=== PATIENT | female | born 1980 | race Caucasian/White ===

== ENCOUNTER 2024-03-19 11:05 | Emergency (ER) | payer BC, SELFPAY ==
[2024-03-19 11:17] VITALS: BP 146/67; PULSE 62; RESP 20; TEMP 36.6; O2SAT 99
--- NOTE | 2024-03-19 11:33 | ED_ITS ---
HPI - URI/Sore Throat General Chief Complaint: Upper Respiratory Infection Stated Complaint: Sinus/Sore Throat Time Seen by Provider: 03/19/24 11:45 Source: patient, RN notes reviewed and old records reviewed Mode of arrival: ambulatory Limitations: no limitations History of Present Illness HPI Narrative: Patient presents with complaints of sore throat and some postnasal drainage for about 1 week. She denies any fever, chills, sweats. She has been taking [id number] medications with moderate relief. Says that she has been taking some decongestant, knows that this is detrimental to her blood pressure. Has not been taking any antihistamines. Related Data Home Medications Medication Instructions Recorded Confirmed atorvastatin 10 mg tablet 10 mg PO DAILY 02/02/24 03/19/24 nifedipine 30 mg tablet,extended 30 mg PO DAILY 02/02/24 03/19/24 release Allergies Allergy/AdvReac Type Severity Reaction Status Date / Time No Known Allergies Allergy Verified 03/19/24 11:22 Review of Systems Review of Systems: All systems reviewed & are unremarkable except as noted in HPI and below Constitutional: Constitutional: Reports no additional constitutional complaints ENT: Reports system reviewed and no additional complaints, except as documented, Reports as per HPI, Reports post nasal drip and Reports sore throat Cardiovascular: Cardiovascular: Reports no additional cardiovascular complaints Respiratory: Respiratory: Reports no additional respiratory complaints Gastrointestinal: Gastrointestinal: Reports no additional gastrointestinal complaints [facility] Past Medical History Medical History delivery delivered High cholesterol Hypertension Surgical History Surgical History H/O gynecological procedure D&C ~2013 History of appendectomy Family History Family History Father Pancreatic cancer Mother Kidney carcinoma Social History Social History Smoking status: Never smoker Alcohol intake: current Alcohol use details: rarely Substance use: never Substance use type: does not use Do You Feel Safe in your Home?: Yes Lack of Transportation: No Lack of Food: Never True Current Housing: I Have Housing Concerned About Future Housing: No Difficulty Paying Gas/Electric Bills: No Difficulty Paying for Meds: No Currently Unemployed: No Education: High School Diploma/GED Difficulty w/ Childcare or Family Care: No Living arrangements: with family Occupation/Education: occupation Additional occupation/education comments: [employer] Gender identity (if verbalized by the patient): Female Sexual Orientation (if Verbalized by the Patient): Straight or Heterosexual Comments At the time of my signature, I reviewed and agree with the nursing past medic al, surgical, social, and family history. There is no relevant family history pertinent to the patient complaint. Exam Const: General: cooperative, no acute distress, alert and awake Orientation/consciousness: oriented to person, oriented to place and oriented to time HENMT: Head: normal to inspection Ears: TM's normal bilaterally Mouth: Yes moist mucous membranes Throat: posterior oropharynx abnormal erythema Resp: Effort & Inspection: normal respiratory effort and able to speak in complete sentences Auscultation: clear to auscultation bilaterally, no crackles, no rales, no rhonchi and no wheezes Cardio: Palpation: normal PMI Rate: regular rate Rhythm: regular rhythm Heart sounds: S1 normal heart sound present and S2 normal heart sound present Neuro: General: oriented to person, oriented to place and oriented to time Cranial nerves: Yes CN's II-XII intact bilaterally Psych: Appearance: grossly normal Thought process: Normal thought process present Insight: Good insight present (Psych) Judgement: Good judgement present (Psych) Course Course Level of Care: Express Care Visit Vital Signs Vital signs: Vital Signs Temperature 98 F 03/19/24 11:17 Pulse Rate 62 03/19/24 11:17 Respiratory Rate 20 03/19/24 11:17 Blood Pressure 146/67 H 03/19/24 11:17 Pulse Oximetry 99 03/19/24 11:17 Oxygen Delivery Room Air 03/19/24 11:17 Temperature 98 F 03/19/24 11:17 Pulse Rate 62 03/19/24 11:17 Respiratory Rate 20 03/19/24 11:17 Blood Pressure 146/67 H 03/19/24 11:17 Pulse Oximetry 99 03/19/24 11:17 Oxygen Delivery Room Air 03/19/24 11:17 Reviewed MDM - URI/Sore Throat MDM Narrative Medical decision making narrative: Negative strep, culture pending. Reassuring physical exam. Symptoms likely secondary to viral infection. Treat symptomatically. Follow with primary care provider. Emergency department for new or worse symptoms. Discharge instructions reviewed with patient, as well as provided in writing per nursing staff. The instructions also include specific and strict return/GO TO THE ER as well as f/u information. All questions have been answered, and the patient deny any further questions with discharge and discharge plan. Some parts of this dictation were generated by voice recognition software and may contain typographical and/or grammatical inaccuracies. Differential Diagnosis Differential diagnosis: Likely upper respiratory infection, sinusitis, viral infection and pharyngitis Medical Records Attestation: I reviewed the patient's medical records. Lab Data Attestation: I reviewed the patient's lab results. Discharge Plan Discharge Clinical Impression: Viral infection Patient Disposition: Home, Self-Care Condition: Stable Instructions: Antibiotic Form Additional Instructions: Take medications as prescribed, follow with primary care provider. Emergency department for new or worse symptoms Patient Language: Icelandic Prescriptions: No Action atorvastatin 10 mg tablet 10 mg PO DAILY nifedipine 30 mg tablet extended release 30 mg PO DAILY Follow-up/Referrals: Benjamin,MD Gareth [Primary Care Provider] - 1 Week Time of Disposition: 12:02
[2024-03-19 11:43] LABS: EDSTREPNEGPOS1 Negative (Negative)
== END 2024-03-19 12:15 | disposition home or self-care (01) ==
PROVIDERS: Emergency Provider Nurse Practitioner Family; PCP Internal Medicine
DX: B34.9 Viral infection, unspecified (principal); E78.00 Pure hypercholesterolemia, unspecified; I10 Essential (primary) hypertension
CPT/HCPCS: 87081; 87880; 99213; G0463

== ENCOUNTER 2024-06-05 07:50 | Outpatient (CLI) | payer BC, SELFPAY ==
--- NOTE | 2024-06-05 08:02 | ECG_ITS ---
Test Date: 2024-06-05 08:24:06 Measurements Intervals [place] Rate: 69 P: 47 AR: 159 QRS: 42 QRSD: 104 T: 29 QT: 393 QTc: 422 Interpretive Statements SINUS RHYTHM LOW QRS VOLTAGE IN PRECORDIAL LEADS [QRS DEFLECTION < 1.0 mV IN CHEST LEADS] Poor R wave progression No previous ECG available for comparison Electronically Signed On 06-05-2024 21:52:00 RAT CULTURIST by Chris Mckenna M.D.
== END 2024-06-05 07:51 | disposition home or self-care (01) ==
LOC: ANHSURGERY 07:57
PROVIDERS: PCP Internal Medicine; Visit Provider Obstetrics & Gynecology
DX: Z01.818 Encounter for other preprocedural examination (principal); I10 Essential (primary) hypertension; N93.9 Abnormal uterine and vaginal bleeding, unspecified
CPT/HCPCS: 36415; 86850; 86900; 86901; 93005

== ENCOUNTER 2024-06-12 00:36 | Day surgery (SDC) | payer BC, SELFPAY ==
--- NOTE | 2024-05-31 16:51 | SUR.PREOP ---
Report to the Outpatient Waiting Room, entrance under the green pavilion located off [facility], at time 0600 on date 06/12/24. Planned Procedure Time: 0730.? Time changes happen often and if your time is changed the preop area will call you the afternoon before. - You and your visitor will be asked to self-screen and do not enter if you have any COVID symptoms. Please call surgeon if you need to reschedule. - A mask is optional within the hospital at this time. Patients may have clear liquids (water, carbonated beverages, clear teas, apple juice) until 3 hours prior to surgery with a maximum of 20 ounces. - No food from midnight until time of surgery and no smoking. This includes no chewing gum, candy or mints. - Infants may have breast milk until 4 hours before surgery, infant formula 6 hours prior to surgery. - Children will be allowed to drink immediately following surgery.? If applicable, please bring a bottle or sippy cup to assist with drinking. Juice, water, soda, and popsicles are readily available.? For infants on formula, please bring formula the day of surgery.? Pacifiers are allowed. Take only the following medications with a SIP of water on the morning of surgery: N/A DO NOT STOP ANY OF YOUR OTHER PRESCRIPTION MEDICATIONS PRIOR TO SURGERY EXCEPT THE FOLLOWING Medications to discontinue per physician N/A Date to take last dose Please no make-up, nail israeli, hairspray, perfume, deodorant, or body powder the day of surgery.? No jewelry (including any body piercings) or valuables the day of surgery, leave them at home.? Please take a shower or bath the night before, or the morning of, surgery with an antibacterial soap.? Wear comfortable, loose fitting clothing.? Children are encouraged to wear pajamas. - Jewelry must be removed prior to entering the operating room.? Rings and piercings that are not removed may be cut off. - The hospital will not accept responsibility for valuables.? - Please leave all valuables, including medications, at home the day of surgery. If you are going home after surgery, a licensed six horse hitch driver must drive you home.? - NO public transportation without another adult if you receive anesthesia. - We recommend that an adult stay with you for 24 hours following discharge. - We also recommend that you do not drive, make important decision, drink alcoholic beverages, or take any drugs that were not prescribed by your health care provider for at least 24 hours after your discharge time. For Pediatric surgeries, we recommend two adults accompany the child home. Follow any additional instructions given to you from your surgeon. Telephone instructions given to ROSARIO MEDINA and asked if any additional questions and then verbalized understanding. Patient advised to call surgeon office or pre surgery nurse liaison [phone] if any additional questions.
[2024-05-31 17:03] VITALS: BMI 47.0
--- NOTE | 2024-06-10 08:58 | P.HP_ITS ---
H&P: HPI History of Present Illness Date/Time: 06/10/24 08:58 Chief Complaint: AUB Narrative: Lilly is a 43yo P1011, who presents for scheduled surgery. She had an US showing an enlarged fibroid uterus (4cm fibroid). Pap normal 01/2024. She reports her cycles have always been quite irregular; had to work hard; 3 rounds of clomid for her son. She reports within the last couple years, she actually went almost a whole year without a cycle, then it restarted. She reports since turning 39, her cycles have been quite heavier; days 2-3 of her cycle are very heavy with large clots; needing to change ultra tampons every 1-2 hours. She reports her cycle lasts 5 days; on those heavy days, she has a lot of cramping, not relieved by OTC meds/heating pads. She denies any menopausal symptoms. She had an EMB 04/2024 which showed benign endometrium. She has talked with multiple friends/family members who have had a hysterectomy and she is interested in surgery. Review of Systems Constitutional: Constitutional: Denies chills, Denies fever(s) and Denies headache(s) Eyes: Eyes: Denies change in vision ENT: Denies dizziness and Denies headache(s) Cardiovascular: Cardiovascular: Denies chest pain and Denies dyspnea Respiratory: Respiratory: Denies cough and Denies dyspnea Gastrointestinal: Gastrointestinal: Denies abdominal pain and Denies change in stool character Genitourinary: Genitourinary: Reports abnormal menses, Reports menorrhagia, Reports dysmenorrhea, Denies pelvic pain, Denies vaginal discharge, Denies vaginal odor and Denies vaginal pruritus Neurologic: Denies dizziness and Denies headache(s) Psychiatric: Psychiatric: Denies anxiety and Denies depression [facility] Past Medical History Medical History delivery delivered High cholesterol Hypertension Surgical History Surgical History H/O gynecological procedure D&C ~2013 History of appendectomy Family History Family History Father Pancreatic cancer Mother Kidney carcinoma Social History Social History Smoking packs per day: 0.75 Smoking cigarettes per day: 15.0 Years smoked: 20 Smoking pack-years: 15.00 Smoking status: Former smoker Smoking end date: 05/24/17 Alcohol intake: current Alcohol use details: rarely Substance use: never Substance use type: does not use Do You Feel Safe in your Home?: Yes Lack of Transportation: No Lack of Food: Never True Current Housing: I Have Housing Concerned About Future Housing: No Difficulty Paying Gas/Electric Bills: No Difficulty Paying for Meds: No Currently Unemployed: No Education: High School Diploma/GED Difficulty w/ Childcare or Family Care: No Living arrangements: with family Occupation/Education: occupation Additional occupation/education comments: [employer] Gender identity (if verbalized by the patient): Female Sexual Orientation (if Verbalized by the Patient): Straight or Heterosexual Spiritual care concerns: No Meds Home Medications and Allergies Home Medications ?Medication ?Instructions ?Recorded ?Confirmed ?Type atorvastatin 10 mg tablet 10 mg PO DAILY 02/02/24 05/31/24 History nifedipine 30 mg tablet,extended 30 mg PO DAILY 02/02/24 05/31/24 History release omeprazole 10 mg capsule,delayed 10 mg PO DAILY 04/13/24 05/31/24 History release medroxyprogesterone 10 mg tablet 10 mg PO DAILY #14 tabs 05/31/24 05/31/24 Rx (Provera) Allergies Allergy/AdvReac Type Severity Reaction Status Date / Time No Known Allergies Allergy Verified 05/03/24 16:51 Exam Const: General: cooperative, comfortable, no acute distress and obese Nutritional Appearance: obese Orientation/consciousness: patient oriented x3 Resp: Effort & Inspection: normal respiratory effort Cardio: Rate: regular rate GI: Inspection: normal to inspection GI Palp: No abdominal tenderness and Yes Soft to palpation : Other: deferred to OR Skin: General skin exam: normal color Neuro: General: patient oriented x3 Extrem: General: normal to inspection Psych: Appearance: grossly normal Affect: normal affect Attitude: cooperative Assessment and Plan Assessment and plan (1) Abnormal uterine bleeding (AUB): Code(s): N93.9 - Abnormal uterine and vaginal bleeding, unspecified Status: Acute (2) Fibroid uterus: Qualifiers: Uterine leiomyoma location: intramural Qualified Code(s): D25.1 - Intramural leiomyoma of uterus Code(s): D25.9 - Leiomyoma of uterus, unspecified Status: Acute Plan - Normal pap/endometrial sampling - - Proceed with robotic assisted total laparoscopic hysterectomy with bilateral salpingectomy and cystoscopy - Risks and benefits of surgery discussed in detail including but not limited to pain, bleeding, injury to nearby structures (bowel, bladder, ureter, ovary, bl ood vessels, nerves) or infection (skin, vaginal, pelvic). - I have also discussed the recommended time off and natural course of healing/downtime
[2024-06-12] VITALS (12 sets, daily range): BP systolic 115–160; BP diastolic 50–78; PULSE 68–89; RESP 12–20; TEMP 36.3–36.9; O2SAT 93–100
--- NOTE | 2024-06-12 07:09 | WPDHPUPDATE1 ---
History and Physical Update Update Date/Time: 06/12/24 07:09 History and Physical has been reviewed, including an updated exam of the patient. There are NO changes in the patient's condition. Risks, benefits, and alternatives have been discussed and questions answered. Patient agrees to proceed with robotic assisted total laparoscopic hysterectomy with bilateral salpingectomy and cystoscopy.
[2024-06-12] MEDS: LACTATED RINGERS 1,000 ML 30 ML IV CONT ×2 (07:10→10:25)
[2024-06-12] MEDS: ACETAMINOPHEN 500 MG TABLET 1000 MG PO ×3 (07:17→19:20)
[2024-06-12] MEDS: KETOROLAC 15 MG/ML VIAL (*BKC) IV PUSH (07:17)
--- NOTE | 2024-06-12 07:24 | WPDANESEPPF ---
Anes - Initial Pre Proc Eval Procedure: Operation Date: 06/12/24 07:30 Proposed Procedures p Robotic Assisted Total Laparoscopic Hysterectomy with Bilateral Salpingectomy - Kely Gilman MD Date/Time: 06/12/24 07:24 Surgeon: Kely Gilman MD Pre Op Diagnosis: abnormal uterine bleeding Patient Data Age: 43 Gender: F Height: 1.6 m Weight: 119.7 kg Allergies Allergy/AdvReac Type Severity Reaction Status Date / Time No Known Allergies Allergy Verified 05/03/24 16:51 Home Medications ?Medication ?Instructions ?Recorded ?Confirmed ?Type atorvastatin 10 mg tablet 10 mg PO DAILY 02/02/24 05/31/24 History nifedipine 30 mg tablet,extended 30 mg PO DAILY 02/02/24 05/31/24 History release omeprazole 10 mg capsule,delayed 10 mg PO DAILY 04/13/24 05/31/24 History release medroxyprogesterone 10 mg tablet 10 mg PO DAILY #14 tabs 05/31/24 05/31/24 Rx (Provera) Patient hx anesthesia problems: none Family hx anesthesia problems: none Results Review: All pre-operative results and documents have been reviewed as part of the pre-operative evaluation. [facility] Past Medical History Medical History delivery delivered High cholesterol Hypertension Surgical History Surgical History H/O gynecological procedure D&C ~2013 History of appendectomy Family History Family History Father Pancreatic cancer Mother Kidney carcinoma Social History Social History Smoking packs per day: 0.75 Smoking cigarettes per day: 15.0 Years smoked: 20 Smoking pack-years: 15.00 Smoking status: Former smoker Smoking end date: 05/24/17 Alcohol intake: current Alcohol use details: rarely Substance use: never Substance use type: does not use Do You Feel Safe in your Home?: Yes Lack of Transportation: No Lack of Food: Never True Current Housing: I Have Housing Concerned About Future Housing: No Difficulty Paying Gas/Electric Bills: No Difficulty Paying for Meds: No Currently Unemployed: No Education: High School Diploma/GED Difficulty w/ Childcare or Family Care: No Living arrangements: with family Occupation/Education: occupation Additional occupation/education comments: [employer] Gender identity (if verbalized by the patient): Female Sexual Orientation (if Verbalized by the Patient): Straight or Heterosexual Spiritual care concerns: No Anes - Eval Final PreProcedure Day of Procedure 06/12/24 07:24 Patient weight: morbidly obese Heart: regular rate and rhythm Lungs: clear to auscultation Airway: Mallampati scale class III Neurological: alert and oriented Last oral intake: >/= 8 hours ASA classification: III Emergent: no Anesthetic plan: proceed Anesthesia type and monitoring: general ETT and standard monitoring Results Review: All pre-operative results and documents have been reviewed as part of the pre-operative evaluation. Informed Consent: The patient's anesthetic plan and its attendant risks and benefits were discussed with the patient/family/POA. Questions were solicited and answers provided to the satisfaction of the patient/family/POA.
[2024-06-12 07:33] LABS: BEDSIDEPREGUCG Negative (Negative)
[2024-06-12] MEDS: metroNIDAZOLE 500 MG/ISO 100ML 500 MG/100 ML BAG 100 MG IVPB (07:34)
[2024-06-12] MEDS: ceFAZolin 2 GM/D5W 50 ML 2 GM/50 ML BAG IVPB (07:34)
[2024-06-12] MEDS: LIDO 1%/EPINEPHRINE 1:100,000 50 ML VIAL 30 ML INFILTRATE (08:32)
--- NOTE | 2024-06-12 09:51 | W.PM.PROC2 ---
Procedure Note - Detailed Date of Procedure 06/12/24 Pre-op Diagnosis abnormal uterine bleeding Fibroid uterus Post-op Diagnosis Same Procedure Performed Robotic assisted total laparoscopic hysterectomy, bilateral salpingectomy, cystoscopy, and left vaginal wall laceration repair Surgeon Kely Gilman MD Supervisor Twisting Department [place] Anesthesia General and Local Findings Uterus sounded to 10cm; bulky, with a fibroid at the fundus/left cornual area. Normal appearing right ovarian cyst; normal left ovary. Omental adhesions to the midabdomen; taken down. Endometriosis noted in left tube. Endometriosis involving the fundus/posterior uterus/and left uterosacral ligament. Vaginal laceration noted on left side wall, ~3cm after removal of uterus; repaired using 2-0 Vicryl. Normal bladder that filled without issue; no defects/masses. Bilateral ureteral efflux noted. Good hemostasis at end of case. Vaginal packing placed at end of case. Uterus, cervix, bilateral fallopian tubes: 252g Description of Procedure Lilly was taken to the operating room where she was placed under general anesthesia without issues. She received 2 g Ancef and 500mg Metronidazole. She was then prepped and draped in the usual sterile fashion in the dorsal lithotomy position with her legs in low Toy stirrups, her arms tucked at her side, with a strap over her chest. A time-out was performed. My attention was turned down below where a diaz catheter was placed. A bivalve speculum was placed within the vagina. The cervix was easily identified and the anterior lip of the cervix was grasped with single-tooth tenaculum. The uterus was then sounded to 10cm. The cervix was serially dilated to allow for the RENEA uterine manipulator; which was placed w/o issue (10cm tip with 3cm cervical ring). My gloves were changed and attention was then turned to the abdomen. A 5 mm trocar was placed under direct visualization at Bryant's point without issue. Once intra-abdominal placement was confirmed, the abdomen was insufflated with carbon dioxide gas. An abdominal survey was performed and the above findings were noted. Two additional ports were placed on the right and left side and the camera port was placed supraumbilical under direct visualization without issues. The 5mm port was switched out for the accessory port under direct visualization. The patient was then placed in deep Trendelenburg, with the legs slightly lowered. The robot was then docked. The instruments were placed intra-abdominally under direct visualization. I then un-scrubbed and went to the robotic console. The omental adhesions to the mid abdomen were easily taken down after verification that no bowel was included in the adhesions. Good hemostasis was noted. I then started my hysterectomy on the right side. The ureter was easily identified transperitoneally and well out of the surgical field. The fallopian tube was elevated and the mesosalpinx was coagulated and transected. The round ligament was clamped, coagulated, and transected. The uterine ovarian artery was then serially clamped, coagulated, and transected with good hemostasis. The broad ligament was then dissected anteriorly and posteriorly skeletonizing the uterine artery. The bladder flap was then attempted to be developed on the right side, but some adhesions were noted. The same procedure was then performed on the left side without complications. The bladder flap was started on the left, and carried around counter clock rossi and out of the surgical field. The uterine arteries were then serially clamped and coagulated. Once the vessels were adequately coagulated, they were then transected with good hemostasis. The uterus was noted to be devascularized. The bladder flap was verified out of the surgical field and the colpotomy was started anteriorly and continued in a clockwise fashion until the uterus was released. The uterus was quite bulky and hard to remove from the abdomen via the vagina. I did scrub back in and was able to remove the uterus, cervix, bilateral fallopian tubes intact from the vagina. The vaginal cuff had small bleeders that were made hemostatic without complications. The vaginal cuff was then reapproximated using two separate 0 V lock suture. The pelvis was then irrigated and suctioned free of all clots and debris. Good hemostasis was noted. The vaginal packing was then removed and it was noted that the lap pad was fully saturated. The vagina was examined and a left vaginal wall laceration was identified. The laceration was repaired using 2-0 Vicryl in a locking manner and the laceration was reapproximated well and good hemostasis was then noted. The cuff was intact without any defects. The Diaz catheter was then removed. The cystoscope was placed within the bladder, which filled without difficulty. Bilateral ureteral efflux was noted. The bladder was examined and no defects or abnormalities were visualized. The bladder was drained. The cystoscope was removed. The Diaz catheter was then replace. A vaginal packing covered in lubricant was then placed within the vagina. All instruments were removed from the abdomen and the robot was undocked. The 4 laparoscopic incisions were reapproximated using 4-0 Monocryl and covered with Dermabond. The laparoscopic incisions were infiltrated with local anesthesia for better pain control. Sponge, lap, instrument, needle counts were correct at the end the procedure. Patient was awoken from general anesthesia and taken to recovery in a stable conditions with plans of overnight stay. Estimated Blood Loss 150 IV Fluids 1,200 Urine Output 50 Drains No Packing Yes (vaginal x1) Pathology Yes (Uterus, cervix, bilateral fallopian tubes) Complications No immediate complications Condition Stable Disposition Floor [facility] Billing Surgery - Charge Forward: Surgery Billing
[2024-06-12] MEDS: fentaNYL CITRATE INJ (*CRX) 100 MCG/2 ML VIAL 25 MCG IV PUSH ×3 (10:45→11:10)
[2024-06-12] MEDS: KETOROLAC 30 MG/ML VIAL (*BKC) IV PUSH ×2 (12:14→19:19)
[2024-06-12] MEDS: SIMETHICONE 80 MG TAB.CHEW PO ×2 (12:14→17:41)
[2024-06-12] MEDS: DEXTROSE 5%/0.45% SOD CHL 1,000 ML 125 ML IV CONT ×2 (12:14→19:54)
[2024-06-12] MEDS: oxyCODONE HCL (*CRX) 5 MG TAB IR 10 MG PO ×2 (13:40→17:41)
[2024-06-12] MEDS: DOCUSATE SODIUM 100 MG CAPSULE PO (17:41)
[2024-06-13] MEDS: KETOROLAC 30 MG/ML VIAL (*BKC) IV PUSH (01:16)
[2024-06-13] MEDS: ACETAMINOPHEN 500 MG TABLET 1000 MG PO ×2 (01:16→07:14)
[2024-06-13 03:25] VITALS: BP 137/66; PULSE 66; RESP 16; TEMP 36.3
[2024-06-13 05:40] LABS: Basophils Percent Auto 0.1 % (0.2-1.2); Hematocrit 32.9 % (37.0-47.0); Hemoglobin 10.6 g/dL (12.0-15.0); Immature Granulocyte Absolute 0.04 K/mm3 (0.00-0.031); Immature Granulocyte Percent A 0.4 % (0-0.5); Lymphocytes Absolute Auto 1.69 K/mm3 (0.9-3.2); Lymphocytes Percent Auto 17.4 % (18.3-44.2); Mean Corpuscular HGB Conc 32.2 g/dl (32-36); Mean Corpuscular Volume 83.7 fl (80-100); Monocytes Absolute Auto 0.8 K/mm3 (0.1-0.6); Monocytes Percent Auto 8.3 % (2.6-8.5); Neutrophils Absolute Auto 7.2 K/mm3 (1.3-6.7); Neutrophils Percent Auto 73.8 % (45.5-73.1); Platelet Count Result 263 k/mm3 (150-375); Red Blood Count 3.93 M/mm3 (4.2-5.4); Red Cell Distribution Width 13.6 % (11.5-14.5); White Blood Count 9.7 K/mm3 (4.5-10.0)
[2024-06-13 05:54] LABS: Anion Gap 8 mmol/L (4-12); Blood Urea Nitrogen 8 mg/dL (7-17); Calcium 8.4 mg/dL (8.4-10.2); Carbon Dioxide 22 mmol/L (22-30); Chloride 106 mmol/L (98-107); Estimated CRCL calculation 125 ml/min; Estimated Glomerular Filt Rate > 60; Glucose 102 mg/dL (65-110); Potassium 4.1 mmol/L (3.4-5.0); Sodium 136 mmol/L (137-145)
--- NOTE | 2024-06-13 06:59 | P.PNOB_ITS ---
RIGGER THIRD - A/P Assessment and plan (1) S/P laparoscopic hysterectomy: Code(s): Z90.710 - Acquired absence of both cervix and uterus Status: Acute Postoperative Procedures: Procedures Operation Date: 06/12/24 07:30 Actual Procedure Side Surgeon p Robotic Assisted Total Laparoscopic Hysterectomy with Bilateral Salpingectomy, Cystoscopy, Vaginal Wall Laceration Repair with Packing Kely Gilman MD Postoperative day: 1 Postoperative status: doing well Postoperative plan: routine post-op care, advance diet, voiding trials and discharge (after void/breakfast) Time Spent With Patient Time: Total time spent is greater than 50% in coordination of care (as documented) at patient's floor/unit and/or counseling patient: Time with patient: less than 15 minutes RIGGER THIRD- PN:Subj Post-Op Subjective Date/time seen: 06/13/24 06:59 Interval history: POD#1 Lilly reports doing well today. No issues overnight. Her pain is now controlled with PO meds. She has tolerated regular diet. She denies any vaginal bleeding, vaginal packing was removed this morning and was not fully saturated. She has not voided yet. She has passed flatus. She has ambulated and denies any symptoms of anemia. Review of Systems 2 Review of Systems: All systems reviewed & are unremarkable except as noted in HPI and below (HPI) Constitutional: Constitutional: Denies chills, Denies fever(s) and Denies headache(s) Eyes: Eyes: Denies change in vision ENT: Denies dizziness and Denies headache(s) Cardiovascular: Cardiovascular: Denies chest pain and Denies rapid heart rate Respiratory: Respiratory: Denies cough Genitourinary: Genitourinary: Denies abnormal vaginal bleeding Neurologic: Denies dizziness and Denies headache(s) Exam 2 Const: General: cooperative, healthy appearing, comfortable and no acute distress Orientation/consciousness: patient oriented x3 Resp: Effort & Inspection: normal respiratory effort Auscultation: clear to auscultation bilaterally Cardio: Rate: regular rate GI: Inspection: normal to inspection and incision ( LSC incisions c/d/i) GI Palp: Yes abdominal tenderness (appropriate) and Yes Soft to palpation A uscultation: normal bowel sounds : Other: normal bleeding on pad Skin: General skin exam: normal color Neuro: General: patient oriented x3 Psych: Appearance: grossly normal Affect: normal affect Attitude: c ooperative RIGGER THIRD - PN: Obj Data Vital Signs Vital Signs: Vital Signs - 24 hr 06/12/24 07:31 06/12/24 10:10 06/12/24 10:25 Temperature 97.4 F L 97.4 F L Pulse Rate 74 88 87 Respiratory Rate 14 15 Blood Pressure 160/78 H 115/54 L 123/54 L Pulse Oximetry 99 100 100 Oxygen Delivery Room Air Simple Face Mask Simple Face Mask Oxygen Flow Rate 8 8 06/12/24 10:40 06/12/24 10:55 06/12/24 11:10 Temperature Pulse Rate 82 84 80 Respiratory Rate 14 15 12 Blood Pressure 126/68 115/55 L 120/58 L Pulse Oximetry 100 96 97 Oxygen Delivery Simple Face Mask Room Air Room Air Oxygen Flow Rate 8 06/12/24 11:15 06/12/24 11:19 06/12/24 11:40 Temperature 97.4 F L Pulse Rate 75 73 Respiratory Rate 12 20 Blood Pressure 117/50 L 134/66 Pulse Oximetry 96 93 Oxygen Delivery Room Air Nasal Cannula Oxygen Flow Rate 1 06/12/24 17:30 06/12/24 19:30 06/12/24 23:20 Temperature 97.7 F 98.1 F 98.4 F Pulse Rate 73 89 68 Respiratory Rate 16 16 16 Blood Pressure 144/67 H 148/65 H 142/65 H Pulse Oximetry Oxygen Delivery Oxygen Flow Rate 06/13/24 03:25 Temperature 97.3 F L Pulse Rate 66 Respiratory Rate 16 Blood Pressure 137/66 Pulse Oximetry Oxygen Delivery Oxygen Flow Rate Intake/Output Intake/Output: Intake & Output 06/10/24 06/11/24 06/12/24 06/13/24 23:59 23:59 23:59 23:59 Intake Total 3448.3 780 Output Total 3575 1050 Balance -126.7 -270 Meds/Results Medications: Active Medications Generic Name Dose Route Start Last Admin Trade Name Freq PRN Reason Stop Dose Admin Acetaminophen 1,000 mg 06/12/24 12:00 06/13/24 01:16 Acetaminophen 500 Mg Tablet PO 1,000 mg Q6HR LANCE Administration Docusate Sodium 100 mg 06/12/24 17:00 06/12/24 17:41 Docusate Sodium 100 Mg Capsule PO 100 mg BID LANCE Administration Ibuprofen 600 mg 06/13/24 06:00 Ibuprofen 600 Mg Tablet PO Q6HR [facility] Naloxone HCl 0.1 mg 06/12/24 11:20 Naloxone Hcl 0.4 Mg/Ml Vial IV PUSH Q2M PRN Respiratory rate less than 10 Nifedipine 30 mg 06/13/24 09:00 Nifedipine 30 Mg Tab.Er.24 PO DAILY [facility] Ondansetron HCl 4 mg 06/12/24 11:20 Ondansetron Inj 4 Mg/2 Ml Vial IV PUSH Q6H PRN Nausea And Vomiting Oxycodone HCl 5 mg 06/12/24 11:20 Oxycodone Hcl (*Crx) 5 Mg Tab Ir PO Q4H PRN Pain Rated 4-6 Oxycodone HCl 10 mg 06/12/24 11:20 06/12/24 17:41 Oxycodone Hcl (*Crx) 5 Mg Tab Ir PO 10 mg Q6H PRN Administration Pain Rated 7-10 Pantoprazole Sodium 20 mg 06/13/24 09:00 Pantoprazole Sod Sesquihydrate 20 Mg Tab PO QAM [facility] Simethicone 80 mg 06/12/24 12:00 06/12/24 17:41 Simethicone 80 Mg Tab.Chew PO 80 mg TIDWM LANCE Administration Labs 06/13/24 05:30 06/13/24 05:30 Labs: Laboratory Results - last 24 hr 06/12/24 06/13/24 06:30 05:30 WBC 9.7 RBC 3.93 L Hgb 10.6 L Hct 32.9 L MCV 83.7 MCH 27.0 MCHC 32.2 RDW 13.6 Plt Count 263 MPV 12.0 H Immature Gran % (Auto) 0.4 Neut % (Auto) 73.8 H Lymph % (Auto) 17.4 L Arroyo % (Auto) 8.3 Eos % (Auto) 0.0 Baso % (Auto) 0.1 L Lymph # (Auto) 1.69 Arroyo # (Auto) 0.8 H Eos # (Auto) 0.0 Baso # (Auto) 0.0 Abs Immat Gran (auto) 0.04 H Absolute Neuts (auto) 7.2 H Absolute Nucleated RBC 0.000 Nucleated RBC % 0.0 Sodium 136 L Potassium 4.1 Chloride 106 Carbon Dioxide 22 Anion Gap 8 BUN 8 Creatinine 0.61 L Estim Creat Clear Calc 125 Estimated GFR > 60 Glucose 102 Calcium 8.4 POC Urine HCG, Qual Negative
[2024-06-13] MEDS: IBUPROFEN 600 MG TABLET PO (07:14)
[2024-06-13 07:45] VITALS: BP 147/68; PULSE 67; RESP 18; TEMP 37.4; O2SAT 99
[2024-06-13] MEDS: SIMETHICONE 80 MG TAB.CHEW PO (08:42)
[2024-06-13] MEDS: DOCUSATE SODIUM 100 MG CAPSULE PO (08:42)
--- NOTE | 2024-06-13 08:49 | WPDANESPN ---
Anes - Prog Note Post-Op Date/Time: 06/13/24 08:49 Cardiovascular status: normal Respiratory status: normal Airway patency: baseline Mental status: baseline Post-Op hydration status: normal Vital Signs: Last Vital Signs Temp 37.4 C 06/13/24 07:45 Pulse 67 06/13/24 07:45 Resp 18 06/13/24 07:45 BP 147/68 H 06/13/24 07:45 Pulse Ox 99 06/13/24 07:45 O2 Del Method Nasal Cannula 06/12/24 11:19 O2 Flow Rate 1 06/12/24 11:19 Pain Score (VAS): 2 I/O: Intake & Output 06/12/24 06/13/24 06/13/24 23:59 07:59 15:59 Intake Total 1698.3 780 Output Total 3275 1050 Balance -1576.7 -270 Laboratory Tests 06/13/24 05:30 06/13/24 05:30 06/13/24 05:30 WBC 9.7 RBC 3.93 L Hgb 10.6 L Hct 32.9 L MCV 83.7 MCH 27.0 MCHC 32.2 RDW 13.6 Plt Count 263 MPV 12.0 H Immature Gran % (Auto) 0.4 Neut % (Auto) 73.8 H Lymph % (Auto) 17.4 L Mckinley % (Auto) 8.3 Eos % (Auto) 0.0 Baso % (Auto) 0.1 L Lymph # (Auto) 1.69 Mckinley # (Auto) 0.8 H Eos # (Auto) 0.0 Baso # (Auto) 0.0 Abs Immat Gran (auto) 0.04 H Absolute Neuts (auto) 7.2 H Absolute Nucleated RBC 0.000 Nucleated RBC % 0.0 Sodium 136 L Potassium 4.1 Chloride 106 Carbon Dioxide 22 Anion Gap 8 BUN 8 Creatinine 0.61 L Estim Creat Clear Calc 125 Estimated GFR > 60 Glucose 102 Calcium 8.4 Post-procedural complaints: none Patient Feedback: Patient satisfied with anesthetic care.
--- OUTSIDE RECORDS SUMMARY | 2024-06-15 11:07 | XMS_ITS | Continuity of Care Document ---
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 [address] , [address], [place], [address], [place]. tel:[phone] Family History Family Member Type Diagnosis Age At Onset No Information Payers Payer name Insurance type Covered green party ID Authoriza tianastasia(s) [facility] CI [id number] Social History Type Description Quantity Date Captured Comments Sex Female Smoking Status No Information Chief Complaint And Reason For Visit No Information Reason For Referral Reason For Referral No Information History Of Present Illness Encounter Date Complaint History Of Prese nt Illness No Information Functional Status Date Functional Assessmen t No Information Instructions Date Instruction Additional Infor mation No Information Assessments Type Assessment Date No Information Patient Care Teams Name Effective Dates (start - stop) Status Members No Information
--- OUTSIDE RECORDS SUMMARY | 2024-06-15 11:07 | XMS_ITS | CONTINUITY OF CARE DOCUMENT ---
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 Name Role Phone Cuauhtemoc HUGHES, Caridad Unavailable [phone] RUI GARZA MD Unavailable RUI GARZA MD Unavailable VITAL SIGNS Date Observation Value Provider blood pressure, diastolic 88 mm[Hg] Me maycol Robertson blood pressure, systolic 128 mm[Hg] Yajaira Robertson SOCIAL HISTORY Date Observation Value Provider smoking status current Tia valentin FUNCTIONAL STATUS Date Observation Value Provider periodic limb movement index absent (0) Tia Robertson INSURANCE PROVIDERS Payer name Policy type / Coverage type Clio red democrat ID [facility] [id number] Other [id number]
--- OUTSIDE RECORDS SUMMARY | 2024-06-15 11:07 | XMS_ITS | Data Portability ---
Author Organization [facility] KAMLAJaylyn Powell Address [address] [place] [address] Assessment Encounter Date Assessment Date Assessment LastModified by Organization Details LastModified Time 09/03/2023 09/03/2023 Empirically Cipro as we get a urine culture as she is having some residual symptoms while coming to the end of her Macrodantin therapy. Hyper blood pressure controlled she will continue with nifedipine 30 mg daily dyslipidemia atorvastatin 10 mg GERD [id number] r omeprazole and conservative measures obesity caloric restriction ANSLEY CPAP. 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 Lab culture, urine 2023 024 JODY LABMÓNICA, Julito [facility], [address], [place], [address], 4 07:09:08 urinalysis , microscopi c 2023 024 JODY LABMÓNICA, Julito [facility], [address], [place], [address], 4 08:22:49 CMP, serum or plasma 2023 024 [facility] [address], [place], [address], 4 08:22:48 CBC w/ auto diff 2023 024 [facility], [address] [facility] [address], [address], [place], [address], 4 08:22:49 lipid panel, serum 2023 024 [facility], [address] [place], [place] [address]handy [address], [address], [place], [address], 4 08:22:47 TSH + free T4, serum 2023 024 [facility], [address] [place] [address] [address], [address], [place], [address], 4 16:28:30 T3, free, serum or plasma 2023 024 [facility], [address] [facility] [address], [address], [place], [address], 4 16:28:30 cortisol, serum or plasma 2023 024 [facility], [address] [facility], [address], [place], [address], 4 16:28:[address] referral 2023 024 [email or web address] Zeke Epps MD, [address] [facility] [address], [place], [address], 4 14:54:27 Procedures None recorded. Surgeries None recorded. Imaging MAMMO, screening, bilateral 2023 024 [facility], [address], [place], [address], 14:31:55 Medication Orders None recorded. Patient TargetsNo targets recorded. 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) [address] [place], [address], 09/04/2023 08:22:47 09/03/1909/04/2023 LIPID PROFI LE triglyceride s 250 mg/dL 0-149 above high normal Not Available [facility] ([facility]) [address] [place], [address], 09/04/2023 08:22:47 09/03/1909/04/2023 LIPID PROFI LE HDL cholesterol 34 mg/dL >39 below low normal Not Available [facility] ([facility]) [address] [place], [address], 09/04/2023 08:22:47 09/03/1909/04/2023 LIPID PROFI LE VLDL cholesterol mahsa 41 mg/dL 5-40 above high normal Not Available [facility] ([facility]) [address] [place], [address], 09/04/2023 08:22:47 09/03/1909/04/2023 LIPID PROFI LE LDL chol calc ([facility]) 72 mg/dL 0-99 Not Available [facility]) [address] [place], [address], 09/04/2023 08:22:47 09/03/19 24 09/04/2023 COMP. METAB OLIC PANEL (14) glucose 100 mg/dL 70-99 above high normal Not Available [facility] ([facility]) [address] [place], [address], 09/04/2023 08:22:48 09/03/19 24 09/04/2023 COMP. METAB OLIC PANEL (14) BUN 10 mg/dL 6-24 Not Available [facility] ([facility]) [address] [place], [address], 09/04/2023 08:22:48 09/03/19 24 09/04/2023 COMP. METAB OLIC PANEL (14) creatinine 0.80 mg/dL 0.57-1 .00 Not Available [facility] ([facility]) [address] [place], [address], 09/04/2023 08:22:48 09/03/19 24 09/04/2023 COMP. METAB OLIC PANEL (14) eGFR 94 mL/mi n/1.7 3 >59 Not Available [facility] ([facility]) [address] [place], [address], 09/04/2023 08:22:48 09/03/19 24 09/04/2023 COMP. METAB OLIC PANEL (14) BUN/creatini ne ratio 13 9-23 Not Available [facility] ([facility]) [address] [place], [address], 09/04/2023 08:22:48 09/03/19 24 09/04/2023 COMP. METAB OLIC PANEL (14) sodium 140 mmol/ L 134-14 4 Not Available [facility] ([facility]) [address] [place], [address], 09/04/2023 08:22:48 09/03/19 24 09/04/2023 COMP. METAB OLIC PANEL (14) potassium 4.4 mmol/ L 3.5-5. 2 Not Available [facility] ([facility]) [address] [place], [address], 09/04/2023 08:22:48 09/03/19 24 09/04/2023 COMP. METAB OLIC PANEL (14) chloride 105 mmol/ L 96-106 Not Available [facility] ([facility]) [address] [place], [address], 09/04/2023 08:22:48 09/03/19 24 09/04/2023 COMP. METAB OLIC PANEL (14) carbon dioxide, total 22 mmol/ L 20-29 Not Available [facility] ([facility]) [address] [place], [address], 09/04/2023 08:22:48 09/03/19 24 09/04/2023 COMP. METAB OLIC PANEL (14) calcium 9.5 mg/dL 8.7-10 .2 Not Available [facility] [address] [facility] [place], [address], 09/04/2023 08:22:48 09/03/19 24 09/04/2023 COMP. METAB OLIC PANEL (14) protein, total 6.6 g/dL 6.0-8. 5 Not Available [facility] ([facility]) [address] [facility] [place], [address], 09/04/2023 08:22:48 09/03/19 24 09/04/2023 COMP. METAB OLIC PANEL (14) albumin 4.4 g/dL 3.9-4. 9 Not Available [facility] ([facility]) [address] [facility] [place], [address], 09/04/2023 08:22:48 09/03/19 24 09/04/2023 COMP. METAB OLIC PANEL (14) globulin, total 2.2 g/dL 1.5-4. 5 Not Available [facility] ([place] [facility]) [address] [facility] [place], [address], 09/04/2023 08:22:48 09/03/19 24 09/04/2023 COMP. METAB OLIC PANEL (14) A/G ratio 2.0 1.2-2. 2 Not Available [facility] ([facility]) [address] [facility] [place], [address], 09/04/2023 08:22:48 09/03/19 24 09/04/2023 COMP. METAB OLIC PANEL (14) bilirubin, total 1.2 mg/dL 0.0-1. 2 Not Available [facility] ([facility]) [address] [place], [address], 09/04/2023 08:22:48 09/03/19 24 09/04/2023 COMP. METAB OLIC PANEL (14) alkaline phosphatase 82 IU/L 44-121 Not Available [facility]) [address] [place], [address], 09/04/2023 08:22:48 09/03/19 24 09/04/2023 COMP. METAB OLIC PANEL (14) AST (SGOT) 54 IU/L 0-40 above high normal Not Available [facility] ([facility]) [address] [place], [address], 09/04/2023 08:22:48 09/03/19 24 09/04/2023 COMP. METAB OLIC PANEL (14) ALT (SGPT) 77 IU/L 0-32 above high normal Not Available [facility] ([facility]) [address] [place], [address], 09/04/2023 08:22:48 09/03/19 24 09/04/2023 MICRO SCOPI C EXAMI NATIO N WBC 6-10 /hpf 0-5 abnormal Not Available [facility] ([facility]) [address] [place], [address], 09/04/2023 08:22:49 09/03/19 24 09/04/2023 MICRO SCOPI C EXAMI NATIO N RBC None seen /hpf 0-2 Not Available [facility] ([facility]) [address] [facility], [place], [address], 09/04/2023 08:22:49 09/03/19 24 09/04/2023 MICRO SCOPI C EXAMI NATIO N epithelial cells (non renal) 0-10 /hpf 0-10 Not Available [facility] ([facility]) [address] [facility], [place], [address], 09/04/2023 08:22:49 09/03/19 24 09/04/2023 MICRO SCOPI C EXAMI NATIO N casts None seen /lpf nonese en Not Available [facility] ([facility]) [address] [facility], [place], [address], 09/04/2023 08:22:49 09/03/19 24 09/04/2023 MICRO SCOPI C EXAMI NATIO N mucus threads Presen t notest ab. Not Available [facility] ([facility]) [address] [facility], [place], [address], 09/04/2023 08:22:49 09/03/19 24 09/04/2023 MICRO SCOPI C EXAMI NATIO N bacteria Few nonese en/few Not Available [facility] ([facility]) [address] [facility], [place], [address], 09/04/2023 08:22:49 09/03/19 24 09/04/2023 CBC WITH DIFFE RENTI AL/PL ATELE T WBC 7.3 x10e3 /uL 3.4-10 .8 Not Available [facility] ([facility]) [address] [facility], [place], [address], 09/04/2023 08:22:49 09/03/19 24 09/04/2023 CBC WITH DIFFE RENTI AL/PL ATELE T RBC 4.37 x10e6 /uL 3.77-5 .28 Not Available [facility] ([facility]) [address] [place], [address], 09/04/2023 08:22:49 09/03/19 24 09/04/2023 CBC WITH DIFFE RENTI AL/PL ATELE T hemoglobin 12.1 g/dL 11.1-1 5.9 Not Available [facility] ([facility]) [address] [place], [address], 09/04/2023 08:22:49 09/03/19 24 09/04/2023 CBC WITH DIFFE RENTI AL/PL ATELE T hematocrit 37.5 % 34.0-4 6.6 Not Available [facility] ([facility]) [address] [place], [address], 09/04/2023 08:22:49 09/03/19 24 09/04/2023 CBC WITH DIFFE RENTI AL/PL ATELE T MCV 86 fL 79-97 Not Available [facility] ([facility]) [address] [place], [address], 09/04/2023 08:22:49 09/03/19 24 09/04/2023 CBC WITH DIFFE RENTI AL/PL ATELE T MCH 27.7 pg 26.6-3 3.0 Not Available [facility] ([facility]) [address] [place], [address], 09/04/2023 08:22:49 09/03/19 24 09/04/2023 CBC WITH DIFFE RENTI AL/PL ATELE T MCHC 32.3 g/dL 31.5-3 5.7 Not Available [facility] ([facility]) [address] [place], [address], 09/04/2023 08:22:49 09/03/19 24 09/04/2023 CBC WITH DIFFE RENTI AL/PL ATELE T RDW 13.0 % 11.7-1 5.4 Not Available [facility] ([facility]) [address] [facility], [place], [address], 09/04/2023 08:22:49 09/03/19 24 09/04/2023 CBC WITH DIFFE RENTI AL/PL ATELE T platelets 267 x10e3 /uL 150-45 0 Not Available [facility] ([facility]) [address] [facility], [place], [address], 09/04/2023 08:22:49 09/03/19 24 09/04/2023 CBC WITH DIFFE RENTI AL/PL ATELE T neutrophils 63 % notest ab. Not Available [facility] ([facility]) [address] [facility], [place], [address], 09/04/2023 08:22:49 09/03/19 24 09/04/2023 CBC WITH DIFFE RENTI AL/PL ATELE T lymphs 27 % notest ab. Not Available [facility] ([facility]) [address] [facility], [place], [address], 09/04/2023 08:22:49 09/03/19 24 09/04/2023 CBC WITH DIFFE RENTI AL/PL ATELE T monocytes 8 % notest ab. Not Available [facility] ([facility]) [address] [facility], [place], [address], 09/04/2023 08:22:49 09/03/19 24 09/04/2023 CBC WITH DIFFE RENTI AL/PL ATELE T eos 1 % notest ab. Not Available [facility] ([facility]) [address] [facility], [place], [address], 09/04/2023 08:22:49 09/03/19 24 09/04/2023 CBC WITH DIFFE RENTI AL/PL ATELE T basos 1 % notest ab. Not Available [facility] ([facility]) [address] [facility], [place], [address], 09/04/2023 08:22:49 09/03/19 24 09/04/2023 CBC WITH DIFFE RENTI AL/PL ATELE T neutrophils (absolute) 4.6 x10e3 /uL 1.4-7. 0 Not Available [facility] ([facility]) [address] [facility], [place], [address], 09/04/2023 08:22:49 09/03/19 24 09/04/2023 CBC WITH DIFFE RENTI AL/PL ATELE T lymphs (absolute) 2.0 x10e3 /uL 0.7-3. 1 Not Available [facility] ([facility]) [address] [facility], [place], [address], 09/04/2023 08:22:49 09/03/19 24 09/04/2023 CBC WITH DIFFE RENTI AL/PL ATELE T monocytes(ab solute) 0.6 x10e3 /uL 0.1-0. 9 Not Available [facility] ([facility]) [address] [facility], [place], [address], 09/04/2023 08:22:49 09/03/19 24 09/04/2023 CBC WITH DIFFE RENTI AL/PL ATELE T eos (absolute) 0.1 x10e3 /uL 0.0-0. 4 Not Available [facility] ([facility]) [address] [facility], [place], [address], 09/04/2023 08:22:49 09/03/19 24 09/04/2023 CBC WITH DIFFE RENTI AL/PL ATELE T baso (absolute) 0.0 x10e3 /uL 0.0-0. 2 Not Available [facility] ([facility]) [address] [facility], [place], [address], 09/04/2023 08:22:49 09/03/19 24 09/04/2023 CBC WITH DIFFE RENTI AL/PL ATELE T immature granulocytes 0 % notest ab. Not Available [facility] ([facility]) [address] [facility], [place], [address], 09/04/2023 08:22:49 09/03/1909/04/2023 CBC WITH DIFFE RENTI AL/PL ATELE T immature grans (abs) 0.0 x10e3 /uL 0.0-0. 1 Not Available [facility] ([facility]) [address] [facility], [place], [address], 09/04/2023 08:22:49 09/03/1909/05/2023 URINE CULTU RE, SANDHYAI NE urine culture, routine Final report Not Available [facility] ([facility]) [address] [facility], [place], [address], 09/05/2023 07:09:08 09/03/1909/05/2023 URINE CULTU RE, MISSY NE result 1 Commen t Mixed uroge nital lluvia 10,00 0-25, 000 colon y formi ng units per mL Not Available [facility] ([facility]) [address] [facility], [place], [address], 09/05/2023 07:09:08 Result Notes None recorded. Problems Name Problem SNOMED Code Status Onset Date Resolution Date Notes Provider Name and Address Organization Details Recorded Time Urinary tract infectious disease 06828948 Active 2023 KIMO [place], [place] - [facility] 13:25:10 Essential hypertension 21422644 Active 2023 [place] [facility] 13:25:10 Fatigue 17771013 Active 2023 [place] [facility] 15:59:57 Hyperlipidemia 73503893 Active 2023 [place]IMO [place], [place] [facility] 15:59:59 Problem Notes None recorded. Procedures Surgical History Date Name Laterality Status Provider Name and Address Organization Details Recorded Time 06/12/19 Total hysterectomy completed Terrence Good [facility] 06/13/2024 15:43:17 Appendectomy completed Nory ContrerasKIMO [facility] 09/03/2023 12:49:03 Eye Surgery completed Nory Contreras [facility] 09/03/2023 12:49:08 delivery completed Nory Gonzalezstar [facility] 09/03/2023 12:49:21 Dilation and Curettage completed Nory Gonzalezstar [facility] 09/03/2023 12:50:16 Imaging Results None recorded. Procedure Notes None recorded. Medical Equipment None Reported. Allergies No known drug allergies Medications Name Sig Start Date Stop Date Status Note LastModified by Organization Details LastModified Time nifedipin e ER 30 mg tablet,ex tended release 24 hr TAKE 1 TABLET BY MOUTH EVERY DAY 11/14 completed DUPLICAT E/ pt taking medicati on Not Available Not Available Not Available doxycycli ne hyclate 100 mg capsule TAKE 1 CAPSULE BY MOUTH TWICE A DAY FOR 7 DAYS 09/02 completed Not Available Not Available Not Available atorvasta tin 10 mg tablet TAKE 1 TABLET BY MOUTH EVERY DAY 2023 active Not Available Not Available Not Avai lable azithromy mina 250 mg tablet TAKE 2 TABLETS BY MOUTH TODAY, THEN TAKE 1 TABLET DAILY FOR 4 DAYS DIRECTED active Not Available Not Available No t Available nifedipin e ER 30 mg tablet,ex tended release TAKE 1 TABLET BY MOUTH EVERY DAY active Not Available Not Available No t Available ciproflox acin 500 mg tablet TAKE 1 TABLET BY MOUTH EVERY 12 HOURS 11/14 completed complete d course Not Available Not Available Not Available omeprazol e 10 mg capsule,d elayed release Take 1 capsule every other day by oral route. active Not Available Not Available No t Available phenazopy ridine 100 mg tablet 09/02 completed Not Available Not Available Not Available nitrofura ntoin monohydra te/macroc rystals 100 mg capsule 09/02 completed Not Available Not Available Not Available Ozempic 0.25 mg or 0.5 mg (2 mg/3 mL) subcutane ous pen injector Inject by subcutan eous route for 28 days. active Not Available Not Available No t Available Vitals Date Recorded Body height Provider Name an d Address Organization Details Last Updated DateTime 09/03/2023 160.02 cm Nory Contreras [facility] 12:42:58 Date Recorded Body mass index (BMI) Body weight Provider Name and Address Organization Details Last Updated DateTime 09/03/2023 47 kg/m2 821293.7 g Nory Contreras [facility] 12:43:05 Date Recorded Heart rate Provider Name an d Address Organization Details Last Updated DateTime 09/03/2023 65 /min Nory Contreras [facility] 12:54:06 Date Recorded Oxygen saturation Oxygen saturation in Arterial blood by Pulse oximetry Provider Name and Address Organization Details Last Updated DateTime 09/03/2023 98 % 98 % Nory Contreras [place] [facility] 09/03/2023 12:54:15 Date Recorded Body height Provider Name an d Address Organization Details Last Updated DateTime 11/15/2023 160.02 cm Saadia Sanford on, [facility] 11/15/2023 14:52:52 Date Recorded Body mass index (BMI) Body weight Provider Name and Address Organization Details Last Updated DateTime 11/15/2023 46.4 kg/m2 571242.49 g Saadia Adame, [facility] 11/15/2023 14:54:40 Date Recorded Heart rate Provider Name an d Address Organization Details Last Updated DateTime 11/15/2023 71 /min [facility] 11/15/2023 14:58:24 Date Recorded Oxygen saturation Oxygen saturation in Arterial blood by Pulse oximetry Provider Name and Address Organization Details Last Updated DateTime 11/15/2023 98 % 98 % Saadia Adame [facility] 11/15/2023 14:58:55 Date Recorded Systolic blood pressure Diastolic blood pressure Provider Name and Address Organization Details Last Updated DateTime 09/03/2023 132 mm[Hg] 76 mm[Hg] Nory GonzalezyKIMO [place] - [facility] 09/03/2023 12:53:59 Date Recorded Systolic blood pressure Diastolic blood pressure Provider Name and Address Organization Details Last Updated DateTime 11/15/2023 136 mm[Hg] 70 mm[Hg] OLIVER Arvizu [place] - [facility] 11/15/2023 14:58:28 Social History Question Answer Notes LastModified by Organizat ion Details LastModified Time Tobacco Smoking Status Former Smoker Nory KIMO Contreras, [place] - [facility] 09/03/2023 12:47:47 Do You Have An Advance Directive? No Information not available 09/03/2023 What Is Your Level Of Alcohol Consumption? Occasional Information not available 09/03/2023 Are You Blind Or Do You Have Difficulty Seeing? No Information not available 09/03/2023 Are You Currently Employed? Yes Information not available 09/03/2023 Are You Deaf Or Do You Have Serious Difficulty Hearing? 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 No Information not available 09/03/2023 What Was The Date Of Your Most Recent Tobacco Screening? 11/15/2023 [email or web address] Information not available 11/15/2023 What Is Your Relationship Status? Information not available 09/03/2023 Do You Use Your Seat Belt Or Car Seat Routinely? Yes Information not available 09/03/2023 Do You Have Smoke And Carbon Monoxide Detectors In Your Home? Yes Information not available 09/03/2023 Do You Feel Stressed (tense, Restless, Nervous, Or Anxious, Or Unable To Sleep At Night)? JR1000-2 Information not available 09/03/2023 Do You Use Sunscreen Routinely? Yes Information not available 09/03/2023 How Many Years Have You Smoked Tobacco? 20 Information not available 09/03/2023 Sex: Female Functional Status Question Answer Note LastModified by Organization D etails LastModified Time Are you able to care for yourself? Yes Information n ot available 09/03/2023 Mental Status None recorded. Family History Relationship Description Onset Age of this Age Resolved Age Notes LastModified by Organization Details LastModified Time Father Alcohol abuse mebyma Not available 2023 12:46:17 Father Diabetes mellitus mebyma Not available 2023 12:46:24 Father Malignant tumor of prostate mebyma Not available 2023 12:47:04 Mother Hypertensive disorder mebyma Not available 2023 12:46:32 Mother Hypercholest erolemia mebyma Not available 2023 12:46:39 Mother Kidney disease mebyma Not available 2023 12:46:52 Medical History Condition Response Coronary Artery Disease N Atrial Fibrillation N High Blood Pressure Y Depression N COPD N Blood Clots N Anxiety Disorder N Muscle, Joint, or Bone Problems N Acid Reflux (GERD) N Cancer N Stroke N High Cholesterol Y Liver Disease N Headaches N Kidney or Bladder Problems N Thyroid Problems N GI Problems N Skin Problems N Anemia N Heart Attack ([place]) N Diabetes N Seizures/Epilepsy N Asthma N Allergies N Hepatitis N Heart Failure N Osteoporosis N Gynecological HistoryNo gynecological history recorded. Obstetrics History GPAL:G 0 P 0 0 0 0 Immunizations Vaccine Type Date Status Note Provider Nam e and Address Organization Details Recorded Time Influenza, split virus, quadrivalent, preservative 9 completed Saadia Adame RMA [place], [place] [facility] 11/15/2023 14:52:49 Influenza, split virus, quadrivalent, preservative 8 completed Saadia Adame [place] [facility] 11/15/2023 14:52:49 Tdap 6 lesley Adame R[place] [facility] 11/15/2023 14:52:50 Influenza, split virus, trivalent, preservative 3 completed Saadia Adame [place] [facility] 11/15/2023 14:52:50 Influenza, split virus, trivalent, PF 6 lesley Adame [place] [facility] 11/15/2023 14:52:50 Influenza, split virus, trivalent, PF 5 completed Saadia Adame R[place] [facility] 11/15/2023 14:52:50 Past Encounters Encounter ID Performer Location Encounter Start Date Encounter Closed Date Diagnosis/Indication Diagnosis SNOMED-CT Code Diagnosis ICD10 Code Diagnosis Note [id number] Gareth Alexander MD [facility] ([facility]) [address] [place] [phone] 09/03/2023 12:05:42 09/03/2023 13:24:17 Urinary tract infectious disease 71578850 N39.0 Essential hypertension 59488388 I10 Obstructiv e sleep apnea syndrome 68113009 G47.33 Hyperlipidemia 00041814 E78.5 Gastroesop hageal reflux disease without esophagitis 959478884 K21.9 [id number] Gareth Alexander MD [facility] [place] [address] [place] [address] 11/15/2023 14:27:20 11/15/2023 16:04:20 Morbid obesity 195315657 E66.01 Fatigue 99632028 R53.83 Essential hypertension 40297376 I10 Hyperlipidemia 40865889 E78.5 Gynecologi c examination 48541707 Z01.419 Screening mammography 24 449573 Z12.31 Health Concerns Section Related Observation LastModified by Organization Detai ls LastModified Time None Recorded Concern Status LastModified by Organization Details LastModified Time None Recorded Advance Directives Directive N: Payers Encounter Date Sequence Insurance Name Policy Number Policy Camacho Covered Member ID Camacho Member ID Guarantor Name 09/03/2023 1 [place] [id number] 1 Lilly Abrams [id number] Lilly Abrams 11/15/2023 1 [place] [id number] 1 Lilly [id number] Lilly Abrams Notes Date Note Type Note Provider Name and Address Organization Details Recorded Time 09/03/2023 text/html She had an emerg ency room visit for some pain and pressure with urination they put her on some Macrodantin which she is feeling is finishing up but she still has some pain in her back and some pink-tinged urine. Hypertension no headache no dizziness GERD conservatively managed at this time and doing well. 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 Gareth Alexander MD Attn: Accounting,[address] [facility], [place], [address], [facility] 09/04/2023 16:54:19 11/15/2023 text/html hypertension she has had no chest pain or shortness of breath there has been some nonspecific fatigue GERD omeprazole seems to be doing fine CPAP wears it religiously needs a mammogram Gareth Alexander MD Attn: Accounting,[address] [facility], [place], [address], [facility] 11/20/2023 14:04:29 OBGyn Episode No OBEpisode recorded.
--- OUTSIDE RECORDS SUMMARY | 2024-06-15 11:07 | XMS_ITS | Clinical Summary ---
Author Organization [facility] Address [address] [place] [address] Care Team Providers Care Superintendent Cemetery Name Role Phone Gareth Alexander MD Primary Care Provider [phone] Source Comments [facility],non-owned Affiliates and Associated Physician Practices is amultiple site organization consisting of ambulatory clinics and hospital sitesin [place], [place], [place] and [place]. This disclosure is being madepursuant to the Care Everywhere program and may not contain all information available regarding this patient. Last updated 18.[facility] Allergies No known active allergies Medications * Be aware that medications may not be up to date on this document. Alwaysverify current medications with the patient. Medication Sig Dispensed Refills Start Date End Date Status PARoxetine (PAXIL) 20 MG tablet Take 20 mg by mouth once daily Active Active Problems No known active problems Social History Tobacco Use Types Packs/Day Years Used Date Smoking Tobacco: Never Sex and Gender Information Value Date Recorded Sex Assigned at Not on file Gender Identity Not on file Sexual Orientation Not on file Last Filed Vital Signs Vital Sign Reading Time Taken Comments Blood Pressure 122/80 03/23/2016 2:11 PM CDT Pulse 78 03/23/2016 2:11 PM CDT Temperature 36.8 ??C (98.3 ??F) 03/23/2016 2:11 PM CD T Respiratory Rate 18 03/23/2016 2:11 PM CDT Oxygen Saturation - - Inhaled Oxygen Concentration - - Weight 99.8 kg (220 lb) 03/23/2016 2:11 PM CDT Height 160 cm (5' 3 ) 03/23/2016 2:11 PM CDT Body Mass Index 38.97 03/23/2016 2:11 PM CDT Plan of Treatment Health Maintenance Due Date Last Done Comments LIPID TESTING 1979 MAMMOGRAM 1979 PAP SMEAR 1979 HIV SCREENING 12/24/1994 HEPATITIS C SCREENING 12/20/1997 DTAP/TDAP/TD VACCINES (1 - Tdap) 12/24/1998 HEPATITIS B VACCINE (1 of 3 - 19+ 3-dose series) 12/24/1998 COVID-19 VACCINE (1 - 2023-2 5 season) 2024 INFLUENZA VACCINE (#1) 2024 DEPRESSION SCREENING 05/24/2024 ZOSTER VACCINE (1 of 2) 12/24/2029 HIB VACCINE Aged Out No longer eligi ble based on patient's age to complete this topic HPV VACCINE Aged Out No longer eligi ble based on patient's age to complete this topic MENINGOCOCCAL (Group B) VACCINE Aged Out No longer eligible based on patient's age to complete this topic MENINGOCOCCAL VACCINE Aged Out No william basia eligible based on patient's age to complete this topic PNEUMOCOCCAL VACCINE Aged Out No long er eligible based on patient's age to complete this topic Care Teams Superintendent Cemetery Relationship Specialty Start Date End Date Gareth Alexander MD PCP - General Internal Medicine 03/23/16
--- OUTSIDE RECORDS SUMMARY | 2024-06-15 11:07 | XMS_ITS | Referral Summary ---
Author Organization [facility] Address [address] [place] [address] Care Team Providers Care Curing Finisher Name Role Phone Gareth Alexander MD Primary Care Provider [phone] Source Comments [facility],non-owned Affiliates and Associated Physician Practices is amultiple site organization consisting of ambulatory clinics and hospital sitesin [place], [place], [place] and [place]. This disclosure is being madepursuant to the Care Everywhere program and may not contain all information available regarding this patient. Last updated 18.[facility] Allergies No known active allergies Medications * [...] 03/23/2016 2:11 PM CDT Plan of Treatment Not on file Care Teams Curing Finisher Relationship Specialty Start Date End Date Gareth Alexander MD PCP - General Internal Medicine 03/23/16
--- OUTSIDE RECORDS SUMMARY | 2024-06-15 11:07 | XMS_ITS | Patient Health Summary ---
Author Organization [facility] Address [address] [place] [address] Care Team Providers Care Folder Seamer Name Role Phone Gareth Alexander MD Primary Care Provider [phone] Note from [facility],non-owned Affiliates and Associated Physician Practices is amultiple site organization consisting of ambulatory clinics and hospital sitesin [place], [place], [place] and [place]. This disclosure is being madepursuant to the Care Everywhere program and may not contain all information available regarding this patient. Last updated 18.[facility] Allergies No known active allergies Medications * Be aware that medications may not be up to date on this document. Alwaysverify current medications with the patient. * PARoxetine (PAXIL) 20 MG tablet Take 20 mg by mouth once daily Active Problems No known active problems Social [...] Mass Index 38.97 03/23/2016 2:11 PM CDT Procedures * STREP A SCREEN - POINT OF CARE (AMB) STL(Performed 03/23/2016) Performed for Pharyngitis, unspecified etiology * CULTURE STREP GROUP A(Performed 05/20/2014) Results * STREP A SCREEN - POINT OF CARE (AMB) STL (03/23/2016) Strep A Rapid POCT Negative Negative Strep A Internal Control Present Lot # [id number] Expiration Date 09/25/2017 Throat ENTIRE THROAT (SURFACE REGION OF NECK) / Unknown 03/23/2016 Lona Tee SUPERVISOR DUMPING-HAT BLOCKER LAB - POINT O F CARE ORDERABLES * CULTURE STREP GROUP A (05/20/2014 5:54 PM FOLDED TOWEL MACHINE OPERATOR) Culture Beta Strep No Growth of Groups A, C or G Beta Streptococc us. [facility] Throat swab (specimen) ENTIRE THROAT (SURFACE REGION OF NECK) / Unknown 05/20/2014 5:54 PM FOLDED TOWEL MACHINE OPERATOR 05/20/2014 8:57 PM FOLDED TOWEL MACHINE OPERATOR Narrative [facility] - 05/23/2014 8:29 AM FOLDED TOWEL MACHINE OPERATOR LuisSpecimen#[id number] Luis Loc/Rm/Bed: EXPCARE G// Historical Provider MD LAB - MICROBIOLOG Y ORDERABLES Performing Organization Address City/State/[facility] Co de Phone Number [address] [phone] Care Teams Folder Seamer Relationship Specialty Start Date End Date Gareth Alexander MD PCP - General Internal Medicine 03/23/16
== END 2024-06-13 11:10 | disposition home or self-care (01) ==
LOC: ANHSURGERY 11:19 → ANHOB2 13:56
PROVIDERS: PCP Internal Medicine; Visit Provider Obstetrics & Gynecology
PROC: (CPT 58573; principal; 2024-06-12 07:30)
DX: D25.1 Intramural leiomyoma of uterus (principal); N93.9 Abnormal uterine and vaginal bleeding, unspecified; N83.201 Unspecified ovarian cyst, right side; N73.6 Female pelvic peritoneal adhesions (postinfective); N80.00 Endometriosis of the uterus, unspecified; N80.3C2 Endometriosis of the left uterosacral ligament, unspecified depth; N80.202 Endometriosis of left fallopian tube, unspecified depth; N84.0 Polyp of corpus uteri; N99.71 Accidental puncture and laceration of a genitourinary system organ or structure during a genitourinary system procedure; Z87.891 Personal history of nicotine dependence; E66.01 Morbid (severe) obesity due to excess calories; Z68.42 Body mass index [BMI] 45.0-49.9, adult
CPT/HCPCS: 58573; 57200; S2900; 36415; 80048; 85025; 88307; 99199; A9270; J0690; J1100; J1171; J1836; J1885; J2003; J2004; J2250; J2405; J2704; J3010; J7030; J7120

== ENCOUNTER 2025-02-09 07:29 | Emergency (ER) | payer BC, SELFPAY ==
--- OUTSIDE RECORDS SUMMARY | 2025-02-09 07:32 | XMS_ITS | Clinical Summary ---
Author Organization [facility] Address [address] [place] [address] Care Team Providers Care Clerical Grader Name Role Phone Gareth Alexander MD Primary Care Provider Source Comments [facility],non-owned Affiliates and Associated Physician Practices is amultiple site organization consisting of ambulatory clinics and hospital sitesin [place], [place], [place] and [place]. This disclosure is being madepursuant to the Care Everywhere program and may not contain all information available regarding this patient. Last updated 18.[facility] Allergies No known active allergies Medications * Be aware that medications may not be up to date on this document. Alwaysverify current medications with the patient. PARoxetine (PAXIL) 20 MG tablet Take 20 mg by mouth once daily Active Active Problems No known active problems Social History Tobacco Use Types Packs/Day Years Used Date Smoking Tobacco: Never Comments Unknown Sex and Gender Information Value Date Recorded Sex Assigned at Not on file Legal Sex Female 9:43 AM CDT Gender Identity Not on file Sexual Orientation Not on file Last Filed Vital Signs Vital Sign Reading Time Taken Comments Blood Pressure 122/80 03/23/2016 2:11 PM CDT Pulse 78 03/23/2016 2:11 PM CDT Temperature 36.8 C (98.3 F) 03/23/2016 2:11 PM CDT Respiratory Rate 18 03/23/2016 2:11 PM CDT Oxygen Saturation - - Inhaled Oxygen Concentration - - Weight 99.8 kg (220 lb) 03/23/2016 2:11 PM CDT Height 160 cm (5' 3) 03/23/2016 2:11 PM CDT Body Mass Index 38.97 03/23/2016 2:11 PM CDT Plan of Treatment Health Maintenance Due Date Last Done Comments COLOGUARD (AGES 45-75) - COL ON CA SCREENING 1979 COLON MONITORING 1979 COLONOSCOPY - COLON CA SCREENING 1979 CT COLONOGRAPHY - COLON CA SCREENING 1979 Colorectal Cancer Screening 1979 FIT - COLON CA SCREENING 1979 FLEX SIG - COLON CA SCREENING 1979 LIPID TESTING 1979 MAMMOGRAM 1979 HIV SCREENING 12/24/1994 HEPATITIS C SCREENING 12/20/1997 DTAP/TDAP/TD VACCINES (1 - Tdap) 12/24/1998 HEPATITIS B VACCINE (1 of 3 - 19+ 3-dose series) 12/24/1998 PAP SMEAR 12/24/2000 HPV VACCINE (1 - 3-dose SCDM series) 12/24/2006 DEPRESSION SCREENING 05/24/2024 COVID-19 VACCINE (1 - 2023-2 5 season) 2025 INFLUENZA VACCINE (#1) 2025 ZOSTER VACCINE (1 of 2) 12/24/2029 HIB VACCINE Aged Out No longer eligi ble based on patient's age to complete this topic MENINGOCOCCAL (Group B) VACC INE SHARED DECISION-MAKING Aged Out No longer eligibl e based on patient's age to complete this topic MENINGOCOCCAL GROUPS A/C/Y/W VACCINE Aged Out No longer eligible b ased on patient's age to complete this topic PNEUMOCOCCAL VACCINE Aged Out No long er eligible based on patient's age to complete this topic Insurance [employer] SELF PAY NO INSURANCE Member Subscriber Plan / Payer (Ef fective for All Dates) Name:Lilly Medina Member ID:Not on file Relation to Subscriber:Not on file Name:LILLY MEDINA Subscriber ID:Not on file (Home) Address: [address] [place] [id number] Payer ID:Not on file Group ID:Not on file Type:Self Pay Address: [facility] Care Teams Clerical Grader Relationship Specialty Start Date End Date Gareth Alexander MD PCP - General Internal Medicine 03/23/16
[2025-02-09 07:40] VITALS: BP 137/78; PULSE 75; RESP 18; TEMP 36.3; O2SAT 99
--- NOTE | 2025-02-09 07:46 | ED.GENADULT ---
HPI - General Adult General Chief complaint: Animal Bite Stated complaint: dog bite to the nose Time Seen by Provider: 02/09/25 07:37 History of Present Illness HPI narrative: 44-year-old female presented emergency department for evaluation for a dog bite to the face. Patient was petting her Edis [place] Terrier when it nipped at her face. Patient does have 2 superficial lacerations to the nose. Patient denies any other pain or injury. Patient's tetanus is not up-to-date. Denies any medication allergies. Related Data Home Medications ?Medication ?Instructions ?Recorded ?Confirmed ?Last Taken ?Type atorvastatin 10 mg tablet 10 mg PO DAILY 02/02/24 07/26/24 06/11/24 History nifedipine 30 mg tablet,extended 30 mg PO DAILY 02/02/24 07/26/24 06/12/24 History release omeprazole 10 mg capsule,delayed 10 mg PO DAILY 04/13/24 07/26/24 06/11/24 History release Allergies Allergy/AdvReac Type Severity Reaction Status Date / Time No Known Allergies Allergy Verified 02/09/25 07:40 Review of Systems Review of Systems: All systems reviewed & are unremarkable except as noted in HPI and below PMFSH Past Medical History Medical History delivery delivered Hypertension High cholesterol Surgical History Surgical History S/P laparoscopic hysterectomy RA TLJason w/BS 06/12/2024 H/O gynecological procedure D&C ~2013 History of appendectomy Family History Family History Father Pancreatic cancer Mother Kidney carcinoma Social History Social History (Updated 07/26/24 @ 09:49 by Vazquez Perez MA) Smoking packs per day: 0.75 Smoking cigarettes per day: 15.0 Years smoked: 20 Smoking pack-years: 15.00 Smoking status: Former smoker Smoking end date: 05/24/17 Alcohol intake: current Alcohol use details: rare Substance use: never Substance use type: does not use Do You Feel Safe in your Home?: Yes Lack of Transportation: No Lack of Food: Never True Current Housing: I Have Housing Concerned About Future Housing: No Difficulty Paying Gas/Electric Bills: No Difficulty Paying for Meds: No Currently Unemployed: No Education: High School Diploma/GED Difficulty w/ Childcare or Family Care: No Living arrangements: with family Occupation/Education: occupation Additional occupation/education comments: [employer] Gender identity (if verbalized by the patient): Female Sexual Orientation (if Verbalized by the Patient): Straight or Heterosexual Spiritual care concerns: No Exam Narrative: APPEARANCE: Well appearing, no pain, no distress, well-nourished. HEAD: normocephalic, atraumatic. EYES: PERRLA/EOMI, conjunctivae clear. NOSE: Normal no drainage EARS:TMS clear with good light reflex. THROAT: Pharynx clear, no exudate. NECK: Supple. No adenopathy, no masses. RESPIRATORY: Airway patent, respirations nonlabored. Clear to auscultation bilaterally, no rales, rhonchi, wheezing. CARDIOVASCULAR: Regular rate and rhythm without murmurs rubs or gallops. ABDOMINAL: Soft, nontender, nondistended, normal bowel sounds MUSCULOSKELETAL: Moves all extremities. Strength/ROM intact, No edema, No calf tenderness. NEURO: Alert. Cranial nerves II through XII intact. Good gait. Good coordination SKIN: Lacerations to left and right side of nose Course Vital Signs Vital signs: Vital Signs Temperature 97.4 F L 02/09/25 07:40 Pulse Rate 75 02/09/25 07:40 Respiratory Rate 18 02/09/25 07:40 Blood Pressure 137/78 02/09/25 07:40 Pulse Oximetry 99 02/09/25 07:40 Temperature 97.4 F L 02/09/25 07:40 Pulse Rate 80 02/09/25 09:17 Respiratory Rate 16 02/09/25 09:17 Blood Pressure 130/74 02/09/25 09:17 Pulse Oximetry 99 02/09/25 09:17 Procedures Laceration Laceration 1: Time: 08:14 Site: face Side (If applicable): left (left side of nose) Size (cm): 2 Description: linear Depth: simple, single layer ====== Skin Level ====== Skin layer closed with: steri strips ====== Subcutaneous Layer ====== ====== Muscle Layer ====== ====== Tendon Layer ====== Laceration 2: Time: 08:15 Site: face Side (If applicable): right Size (cm): 2 Description: linear Depth: simple, single layer Pre-repair: wound explored and irrigated ====== Skin Level ====== Skin layer closed with: steri strips ====== Subcutaneous Layer ====== ====== Muscle Layer ====== ====== Tendon Layer ====== Medical Decision Making MDM Narrative Medical decision making narrative: 44-year-old female presents emergency department for evaluation for dog bite to the face. Wound was cleansed and closed with Steri-Strips as described in the procedure note. Patient was treated with a dose of IV Unasyn and patient will be discharged home on Augmentin. patient's tetanus was updated. All questions concerns were addressed. Patient was comfortable the plan for discharge and close follow-up. Differential Diagnosis Differential Diagnosis: Nasal fracture, nasal contusion, dog bite, cellulitis Vital Signs Vital Signs: Vital Signs Temperature 97.4 F L 02/09/25 07:40 Pulse Rate 75 02/09/25 07:40 Respiratory Rate 18 02/09/25 07:40 Blood Pressure 137/78 02/09/25 07:40 Pulse Oximetry 99 02/09/25 07:40 Temperature 97.4 F L 02/09/25 07:40 Pulse Rate 80 02/09/25 09:17 Respiratory Rate 16 02/09/25 09:17 Blood Pressure 130/74 02/09/25 09:17 Pulse Oximetry 99 02/09/25 09:17 Discharge Plan Discharge Clinical Impression: Dog bite Patient Disposition: Home Condition: Stable Instructions: Antibiotic Form, Animal Bite (ED), Skin Adhesive Strips (ED) Additional Instructions: antibiotic as directed until completed. Wound care as directed. Have close follow-up with your primary care physician. Patient Language: Taiwanese Prescriptions: New amoxicillin-pot clavulanate 875-125 mg tablet 1 tablet PO Q12H 7 Days Qty: 14 0RF No Action atorvastatin 10 mg tablet 10 mg PO DAILY nifedipine 30 mg tablet extended release 30 mg PO DAILY omeprazole 10 mg capsule,delayed release(DR/EC) 10 mg PO DAILY docusate sodium [Colace] 100 mg capsule 100 mg PO BID Qty: 90 0RF Follow-up/Referrals: Benjamin,MD Gareth [Primary Care Provider]
[2025-02-09] MEDS: TETANUS,DIPHTHERIA,AC PERTUSSIS ADULT (0.5 ML) BOOSTRIX IM (08:35)
[2025-02-09] MEDS: AMPICILLIN SODIUM/SULBACTAM 3 GM in SODIUM CHLORIDE 0.9% IV 100 ML 200 ML IVPB (08:39)
[2025-02-09 09:17] VITALS: BP 130/74; PULSE 80; RESP 16; O2SAT 99
== END 2025-02-09 09:18 | disposition home or self-care (01) ==
PROVIDERS: Emergency Provider Emergency Medicine; PCP Internal Medicine
DX: S01.25XA Open bite of nose, initial encounter (principal); W54.0XXA Bitten by dog, initial encounter; Z87.891 Personal history of nicotine dependence; Z23 Encounter for immunization
CPT/HCPCS: 90471; 90715; 96365; 99284; J0295